=== PATIENT | male | born 1955 | race Hispanic/Latino ===

== ENCOUNTER 2017-03-06 06:49 | Day surgery (SDC) | payer MEDICAID ==
[2017-02-23 09:05] VITALS: BMI 23.6
--- NOTE | 2017-03-05 10:08 | HP ---
REASON FOR ADMISSION: Left heart cath, possible angioplasty. BRIEF CLINICAL HISTORY: This is a 62-year-old male with past medical history significant for multivessel PTCA on 05/26/2016; followed by it, the patient had stress test recently that was abnormal, so the patient scheduled for elective cardiac cath, possible angioplasty. PAST MEDICAL HISTORY: Significant for diabetes, dyspnea on exertion, hypertension, hyperlipidemia, history of multivessel PTCA on 06/06/2016 that shows PTCA of the circumflex, OM1, and OM2, obtuse marginal 1 with a drug-eluting stent. Mid circumflex NIGEL and plain balloon angioplasty of OM1, plain balloon angioplasty of OM2, who recently had abnormal stress test, so the patient is scheduled for elective cardiac cath, possible angioplasty. The patient's cardiac workup as follows. The patient had echocardiography 01/30/2017 that showed [id number] tricuspid regurgitation, RV systolic pressure 63, normal chamber size, ejection fraction 50% to 55%. The patient had stress test dated 01/30/2017 that shows ejection fraction 36%, shows overall ejection fraction decreasing compared to last study dated 05/04/2016, there is near complete resolution and improvement of the previous defect noted. in thecurrent myocardial perfusion study, small reversible defect suggestive of residual ischemia, ejection fraction 52% and ejection fraction significantly improved from 38% to 52%. Last cath dated 06/06/2016 showed [place] 2-vessel critical disease involving circumflex in RCA, moderate disease in LAD, D2, and RCA, not suitable for CABG. Successful PTCA NIGEL drug-eluting stent of the mid circumflex and plain balloon angioplasty of OM1 and OM2 was done. RCA is 100% occluded in the mid segment and not suitable for CABG at that time. CURRENT MEDICATIONS: The patient is taking at home; metformin 850 mg b.i.d., Lasix 20 mg daily, clopidogrel 75 mg daily, coreg 3.125 mg daily, atorvastatin 40 mg daily, and aspirin 81 mg daily. REVIEW OF SYSTEMS: As per HPI. PHYSICAL EXAMINATION: As follows; VITAL SIGNS: Height of the patient is 5 feet 6 inches, weight of the patient 161 pounds, body mass index 24 kg per meter square. Temperature afebrile, heart rate 60, blood pressure 100/70. HEENT: PERRLA, intact. NECK: Supple. No carotid bruits or thyromegaly. CHEST: Clear to auscultation. HEART: S1 and S2, regular. ABDOMEN: Soft. EXTREMITIES: Clubbing and cyanosis negative. IMPRESSION: 1. Diabetes. 2. Hypertension. 3. Hyperlipidemia. 4. Coronary artery disease status post multivessel percutaneous transluminal coronary angioplasty including circumflex, percutaneous transluminal coronary angioplasty and plain balloon angioplasty of OM1 and OM2. 5. Abnormal stress test showing very small area of reversible ischemia, ejection fraction 50% to 55%, significantly improved ejection fraction from 38% to 52% with significant improved ischemia. RECOMMENDATIONS: Cardiac catheterization. Further recommendations after cardiac catheterization. We will follow with you. Thank you Dr. De Leon for providing us the opportunity in taking care of the patient. Keila Eugene MD SUBHASH
[2017-03-06 07:38] LABS: BASO # 0.04 K/mm3 (0.0-2.0); BASO % 0.4 % (0.0-3.0); EOS # 0.2 (0.0-0.7); EOS % 2.1 % (1.5-5.0); GRAN # 7.64 (1.4-6.5); HEMATOCRIT 42.5 % (42.0-52.0); LYMPH # 2.2 (1.2-3.4); LYMPH % 20.1 % (22.0-35.0); MEAN CELL VOLUME 86.4 fl (80.0-105.0); MEAN CORPUSCULAR HEMOGLOBIN 30.7 pg (25.0-35.0); MEAN CORPUSCULAR HGB CONC 35.5 g/dl (31.0-37.0); MEAN PLATELET VOLUME 11.6 fl (7.0-11.0); MONO # 0.8 (0.1-0.6); MONO % 7.4 % (1.0-6.0); RED CELL DISTRIBUTION WIDTH 13.5 % (11.5-14.5); WHITE BLOOD COUNT 10.9 10^3/ul (4.5-11.0)
[2017-03-06 07:47] LABS: INR 1.04 (0.93-1.08); PARTIAL THROMBOPLASTIN TIME 28.4 Seconds (25.1-36.5)
[2017-03-06 07:52] LABS: BLOOD UREA NITROGEN 26 mg/dL (7-21); CALCIUM 9.7 mg/dL (8.4-10.5); CARBON DIOXIDE 26 mmol/L (21-33); CHLORIDE 100 mmol/L (98-107); CHOLESTEROL 193 mg/dL (130-200); GFR AFRICAN-AMERICAN > 60; GLUCOSE,RANDOM 371 mg/dL (70-110); POTASSIUM 4.4 mmol/L (3.6-5.0); SODIUM 137 mmol/L (132-148)
[2017-03-06] MEDS ORDERED: Lidocaine 2% Inj (20ml) ONE (09:02)
[2017-03-06] MEDS ORDERED: Midazolam 2 MG/2 ML VIAL ONE (09:03)
[2017-03-06] MEDS ORDERED: Nitroglycerin 50mg in D5W 50 MG/250 ML BOTTLE IV ONE (09:04)
[2017-03-06 09:40] VITALS: RESP 18
[2017-03-06] MEDS ORDERED: Bacitracin 500 Units/gm Oint Foilpak UD TOP ONE (10:22)
[2017-03-06] MEDS ORDERED: Sodium Chloride 0.9% 1,000 ML IV SCH (10:30)
[2017-03-06 10:50] VITALS: TEMP 97.9
[2017-03-06 11:51] VITALS: O2SAT 99
[2017-03-06] MEDS ORDERED: Bacitracin 500 Units/gm Oint Foilpak UD ONE (13:14)
[2017-03-06 13:33] VITALS: BP 109/67; PULSE 82
--- NOTE | 2017-03-06 16:46 | CARD ---
APPROVED REPORT Procedure(s) performed: Left Heart Catheterization HISTORY The patient is a 62 year-old with a history of : most recent EF: 52%. (EF Method: RADIONUCLIDE), diabetes mellitus with oral treatment , previous diagnostic cath, previous PCI (The PCI date was 06/06/2016), dyslipidemia , Abnormal stress test Infero-lateral Ischemia. INDICATION The indication(s) include : positive stress test. CASE TECHNIQUE The patient was brought electively to the Cardiac Catheterization Laboratory in a fasting state and was prepped and draped in a sterile manner. The left wrist was infiltrated with 2% Lidocaine subcutaneous anesthesia. A 6FR [employer] ACC[employer] KIT sheath was inserted into the left radial artery without difficulty. Coronary angiography was performed using coronary diagnostic catheters. The left coronary system was accessed and visualized with a Diagnostic ,5 Fr JL 3.5 catheter. The right coronary system was accessed and visualized with a 5 Fr JR 4 catheter. The left ventricle was accessed and visualized with a 5 Fr Pigtail 145 (Angled) catheter. Left ventricular/Aortic Valve gradient assessed on pullback. Left ventriculogram was performed in GREY projection. Closure device was deployed with a Fr TR Band (Regular) without any complications. The patient tolerated the procedure well and there were no complications associated with the procedure. Vessel Analysis The patient's coronary anatomy is right dominant. The left main coronary artery is a medium size vessel with diffuse calcification noted throughout this vessel and without significant stenosis. There is a 20-30% stenosis in the distal segment. The left main bifurcates to the left anterior descending and circumflex. The left anterior descending artery is a medium size vessel with diffuse calcification noted throughout this vessel and without significant stenosis. There is a 30% stenosis in the proximal segment. Mid to Distal LAD is Diffusely diseased The first diagonal branch is a small size vessel with diffuse calcification noted throughout this vessel and without significant stenosis. The second diagonal branch is a medium size vessel with diffuse calcification noted throughout this vessel and without significant stenosis. There is a 60-70% stenosis . The circumflex artery is a large size vessel with diffuse calcification noted throughout this vessel and without significant stenosis. patent stent in mid segment The first obtuse marginal branch is a medium size vessel with diffuse calcification noted throughout this vessel and without significant stenosis. Patent POBA site The second obtuse marginal branch is a medium size vessel with diffuse calcification noted throughout this vessel and without significant stenosis. Patent POBA site The right coronary artery is a medium size vessel with diffuse calcification noted throughout this vessel and with significant stenosis. 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 Left Ventricle The left ventricle is borderline in size with borderline contractility. Ischemic cardiomyopathy. The left ventricular ejection fraction is estimated to be 50%. The left ventricular end diastolic pressure is 12 mmHg. There was no gradient across the aortic valve upon pullback. Postero-basal HK. Conclusion RCA [facility]IGHW[employer] COMMISS[employer], but Well collateralized from LAD/Cx Patent Stent in Mid Cx Patent POBA sites in OM1, and OM2. Significantly improved LV Fx. EF-50%, EDP-12. LAD is diffusely diseased but no flow limiting stenosis. Recommendations Aggressive Medical TherapyCardiac Risk Reduction Program CC;Dr. Thor De Leon MD
--- NOTE | 2017-03-07 20:09 | CARD ---
APPROVED REPORT EKG Measurement Heart [id number] <Conclusion> Normal sinus rhythm Inferior infarct, age undetermined Abnormal ECG
== END 2017-03-06 14:15 | disposition home or self-care (01) ==
LOC: CATH 06:49
PROVIDERS: ATTEND Internal Medicine Cardiovascular Disease
DX: I25.10 Atherosclerotic heart disease of native coronary artery without angina pectoris (principal); I25.5 Ischemic cardiomyopathy; I10 Essential (primary) hypertension; I07.1 Rheumatic tricuspid insufficiency; E78.5 Hyperlipidemia, unspecified; E11.9 Type 2 diabetes mellitus without complications; Z95.5 Presence of coronary angioplasty implant and graft; Z79.84 Long term (current) use of oral hypoglycemic drugs
CPT/HCPCS: 36415; 80048; 80061; 85025; 85610; 85730; 86850; 86900; 93458; 99152; C1769; C1887 ×3; J1644 ×2; J2250; J3010; J7040 ×2; Q9967